=== PATIENT | female | born 1985 | race Caucasian/White ===

== ENCOUNTER 2016-12-23 10:53 | Emergency (ER) | payer MEDICAID ==
[2016-12-23] MEDS ORDERED: OPTIRAY 350 100 ML VIAL HMH IV ONE (10:54)
[2016-12-23] MEDS ORDERED: ONDANSETRON 4 MG VIAL ONE ×2 (12:24→14:58)
[2016-12-23] MEDS ORDERED: MORPHINE 4 MG/ML SYR ONE (12:25)
[2016-12-23] MEDS ORDERED: CEFTRIAXONE 1 GM VIAL ONE (14:58)
[2016-12-23] MEDS ORDERED: DILAUDID 1 MG/ML AMP ONE ×2 (14:59→18:50)
[2016-12-23] MEDS ORDERED: SODIUM CHLORIDE 0.9% 100 ML IV ONE (14:59)
== END 2016-12-23 19:19 | disposition home or self-care (01) ==
LOC: ER 10:53
DX: R10.2 Pelvic and perineal pain (principal); N76.0 Acute vaginitis; F17.210 Nicotine dependence, cigarettes, uncomplicated
CPT/HCPCS: 36415; 74177; 76830; 80053; 81001; 83690; 84703; 85025; 87491; 87591; 87800; 96365; 96375; 96376